=== PATIENT | male | born 2000 | race Caucasian/White ===

== ENCOUNTER 2021-05-17 16:00 | Inpatient (IN) | payer MEDICAID ==
[~2021-05-17] VITALS: Ht 167.6 cm; Wt 69.2 kg
[~2021-05-17 16:00] MED LIST: OLAN2.5T3 PO
[2021-05-17] MEDS ORDERED: magnesium 4gm in 100ml NS 100 ML IV PRN (16:45)
[2021-05-17] MEDS ORDERED: ondansetron/PF 4mg/2ml inj IV PRN (16:45)
[2021-05-17] MEDS ORDERED: potassium CL 10mEq/100ml bag 100 ML IV PRN (16:45)
[2021-05-17] MEDS ORDERED: mag hydrox/Alum hydrox/simeth 30ml oral suspension PO PRN (16:45)
[2021-05-17] MEDS ORDERED: potassium Cl 20 mEq SR tablet PO PRN ×2 (16:45)
[2021-05-17] MEDS ORDERED: acetaminophen 325mg tablet PO PRN (16:45)
[2021-05-17] MEDS ORDERED: magnesium 2GM in 50ml NS 50 ML IV PRN (16:45)
[2021-05-17] MEDS ORDERED: magnesium hydroxide 30ml (MOM) UD suspension PO PRN (16:45)
[2021-05-17] MEDS ORDERED: OLAN2.5T28 PO (16:57)
[2021-05-17] MEDS ORDERED: ARIP5TAB60 PO (16:57)
[2021-05-17 17:20] VITALS: BP 110/57
--- NOTE | 2021-05-17 17:20 | NUR ---
Pt transferred from [facility] to [facility] via w/c to bed. Pt reported BARBOSA. Tylenol to be given for BARBOSA. T 99.6. Pt denied any other discomfort. O2 sats 98% on RA. Sitter at bedside for pt safety.
[2021-05-17] MEDS: acetaminophen 325mg tablet PO PRN (17:41)
--- NOTE | 2021-05-17 18:00 | NUR ---
Patient in room ORTHO 4022. I have received report from TAMI Yu and had the opportunity to ask questions and assume patient care.
[2021-05-17] MEDS: K and/or MAG REPLACEMENT MC SCH (19:39)
[2021-05-17] MEDS: docusate sod 100mg capsule PO SCH (20:00)
[2021-05-17] MEDS ORDERED: enoxaparin 40mg/0.4ml syringe SQ SCH (20:00)
[2021-05-17] MEDS: clonazePAM 1mg tablet PO SCH (20:45)
[2021-05-17] MEDS: olanzapine 10mg tablet PO SCH (20:48)
[2021-05-17 22:00] VITALS: BP 115/65
[2021-05-18] MEDS: acetaminophen 325mg tablet PO PRN (05:39)
[2021-05-18 06:00] VITALS: BP 126/71
--- NOTE | 2021-05-18 06:20 | NUR ---
RECEIVED REPORT FROM TAMI RUELAS
--- NOTE | 2021-05-18 06:29 | NUR ---
Problems reprioritized. Patient report given, questions answered & plan of care reviewed with TAMI Kan.
[2021-05-18 07:37] LABS: BASOPHILS % (AUTO) 0.4 % (0-1); EOSINOPHILS % (AUTO) 0.3 % (0-6); HEMATOCRIT 41.5 % (42.0-52.0); HEMOGLOBIN 14.8 g/dl (14.0-17.9); LYMPHOCYTES % (AUTO) 18.3 % (21-51); MEAN CORPUSCULAR HEMOGLOBIN 34.1 PG (27.0-31.0); MEAN CORPUSCULAR HGB CONC 35.7 g/dL (33.0-36.5); MEAN CORPUSCULAR VOLUME 95.6 FL (78-98); MEAN PLATELET VOLUME 8.4 FL (7.4-10.4); MONOCYTES # (AUTO) 1.1 X10'3 (0-0.9); MONOCYTES % (AUTO) 20.5 % (2-12); NEUTROPHILS # (AUTO) 3.3 X10'3 (1.8-7.7); NEUTROPHILS % (AUTO) 60.5 % (42-75); PLATELET COUNT 173 X10'3 (140-440); RED BLOOD COUNT 4.34 X10'6 (4.70-6.10); RED CELL DISTRIBUTION WIDTH 12.3 % (11.5-14.5); WHITE BLOOD COUNT 5.4 X10'3 (4.5-11.0)
[2021-05-18 07:40] LABS: D-DIMER 1.68 MG/L FEU (0-0.50)
[2021-05-18] MEDS: K and/or MAG REPLACEMENT MC SCH ×2 (08:00→20:00)
[2021-05-18] MEDS: docusate sod 100mg capsule PO SCH ×2 (08:00→20:00)
[2021-05-18 08:01] LABS: ALANINE AMINOTRANSFERASE 23 U/L (12-78); ALBUMIN 3.5 G/DL (3.4-5.0); ALBUMIN/GLOBULIN RATIO 1.3 (1.1-1.5); ALKALINE PHOSPHATASE 58 IU/L (20-180); ANION GAP 10 (8-16); ASPARTATE AMINO TRANSFERASE 15 U/L (10-37); BILIRUBIN,TOTAL 0.3 MG/DL (0.1-1.0); BLOOD UREA NITROGEN 11 MG/DL (7-18); BUN/CREATININE RATIO 11.2 (5.4-32.0); C-REACTIVE PROTEIN 1.83 MG/DL (0.0-0.5); CALCIUM 8.6 MG/DL (8.5-10.1); CHLORIDE 108 MMOL/L (99-107); CREATININE 0.98 MG/DL (0.60-1.10); GLUCOSE 111 MG/DL (70-104); SODIUM 144 MMOL/L (135-145); TOTAL CARBON DIOXIDE 25.7 MMOL/L (24-32); TOTAL PROTEIN 6.2 G/DL (6.4-8.2); eGFR > 90 ML/MIN
[2021-05-18] MEDS: olanzapine 10mg tablet PO SCH ×2 (08:20→19:48)
[2021-05-18] MEDS: clonazePAM 1mg tablet PO SCH ×2 (08:20→19:46)
[2021-05-18] MEDS: enoxaparin 40mg/0.4ml syringe SQ SCH ×2 (09:44→19:45)
[2021-05-18 10:00] VITALS: BP 102/52
[2021-05-18 14:00] VITALS: BP 124/67
[2021-05-18] MEDS: clonazePAM 1mg tablet PO PRN (15:02)
[2021-05-18] MEDS: NICOTINE POLACRILEX 2 MG LOZENGE BC PRN (16:55)
--- NOTE | 2021-05-18 18:14 | NUR ---
GAVE REPORT TO August,
[2021-05-18 18:30] VITALS: BP 127/73
[2021-05-18 22:00] VITALS: BP 119/62
[2021-05-19 02:00] VITALS: BP 115/68
[2021-05-19 06:00] VITALS: BP 112/78
--- NOTE | 2021-05-19 06:25 | NUR ---
Patient in room ORTHO 4022B. I have received report from TAMI BANKS and had the opportunity to ask questions and assume patient care.
[2021-05-19] MEDS: enoxaparin 40mg/0.4ml syringe SQ SCH ×2 (08:00→20:00)
[2021-05-19] MEDS: K and/or MAG REPLACEMENT MC SCH ×2 (08:00→19:29)
[2021-05-19] MEDS: clonazePAM 1mg tablet PO SCH ×2 (08:08→20:25)
[2021-05-19] MEDS: olanzapine 10mg tablet PO SCH ×2 (08:08→20:25)
[2021-05-19] MEDS: docusate sod 100mg capsule PO SCH ×2 (08:08→20:00)
[2021-05-19] MEDS: clonazePAM 1mg tablet PO PRN ×2 (09:58→15:33)
[2021-05-19 10:00] VITALS: BP 112/60
[2021-05-19 10:38] LABS: BASOPHILS % (AUTO) 0.3 % (0-1); EOSINOPHILS % (AUTO) 0.5 % (0-6); HEMATOCRIT 46.5 % (42.0-52.0); HEMOGLOBIN 16.2 g/dl (14.0-17.9); LYMPHOCYTES # (AUTO) 1.6 X10'3 (1.1-4.8); LYMPHOCYTES % (AUTO) 39.8 % (21-51); MEAN CORPUSCULAR HEMOGLOBIN 33.7 PG (27.0-31.0); MEAN CORPUSCULAR HGB CONC 34.7 g/dL (33.0-36.5); MEAN CORPUSCULAR VOLUME 97.1 FL (78-98); MEAN PLATELET VOLUME 8.7 FL (7.4-10.4); MONOCYTES # (AUTO) 0.6 X10'3 (0-0.9); MONOCYTES % (AUTO) 15.4 % (2-12); NEUTROPHILS # (AUTO) 1.8 X10'3 (1.8-7.7); PLATELET COUNT 191 X10'3 (140-440); RED CELL DISTRIBUTION WIDTH 12.6 % (11.5-14.5); WHITE BLOOD COUNT 4.1 X10'3 (4.5-11.0)
--- NOTE | 2021-05-19 10:40 | NUR ---
pt was agitated, wanting to leave. said he stole drug money and people wanted to kill him over it so he just wanted to get it over. he was encouraged to stay, as this is the safest place for him. distracted by music, a phone call with his mom, and coloring pages.
[2021-05-19 10:52] LABS: ALANINE AMINOTRANSFERASE 31 U/L (12-78); ALBUMIN 3.8 G/DL (3.4-5.0); ALBUMIN/GLOBULIN RATIO 1.3 (1.1-1.5); ALKALINE PHOSPHATASE 64 IU/L (20-180); ANION GAP 9 (8-16); ASPARTATE AMINO TRANSFERASE 16 U/L (10-37); BILIRUBIN,TOTAL 0.4 MG/DL (0.1-1.0); BLOOD UREA NITROGEN 14 MG/DL (7-18); BUN/CREATININE RATIO 17.7 (5.4-32.0); C-REACTIVE PROTEIN 2.06 MG/DL (0.0-0.5); CALCIUM 8.9 MG/DL (8.5-10.1); CHLORIDE 105 MMOL/L (99-107); CREATININE 0.79 MG/DL (0.60-1.10); GLUCOSE 98 MG/DL (70-104); MAGNESIUM 1.9 MG/DL (1.5-2.4); POTASSIUM 3.8 MMOL/L (3.5-5.1); SODIUM 141 MMOL/L (135-145); TOTAL CARBON DIOXIDE 27.2 MMOL/L (24-32); TOTAL PROTEIN 6.7 G/DL (6.4-8.2); eGFR > 90 ML/MIN
[2021-05-19 11:12] LABS: D-DIMER 0.83 MG/L FEU (0-0.50)
[2021-05-19 14:00] VITALS: BP 132/73
--- NOTE | 2021-05-19 15:13 | NUR ---
Page Sent PAGER ID: [phone] MESSAGE: Yesenia [phone] Re:TavoAshleya [id number] pt woke up demanding Klonipin. I cannot give again until 1999. He is threatening to leave again. Is there something else I can give him? He is just saying he wants drugs. Thank you
--- NOTE | 2021-05-19 17:38 | NUR ---
Per Kecia in [facility] -- pt extended foster care participant; [facility], [employer] is Josette Fernández [phone], pt can call her/she call him to calm him down if needed - may need a form signed by him to release information to her?; D/C plan has been sent to director of social work
[2021-05-19 18:00] VITALS: BP 105/60
--- NOTE | 2021-05-19 18:17 | NUR ---
Problems reprioritized. Patient report given, questions answered & plan of care reviewed with TAMI Chambers.
--- NOTE | 2021-05-19 20:30 | NUR ---
Patient agreeable to take Clonazepam and Zyprexa as ordered but no other medications at this time. Patient is alert and orientated but declined to share what brought him to the hospital. He was able to verbalize understanding of precautions r/t a positive covid test. Patient able to reposition self independently. Denies any further questions, concerns or needs at this time. Will continue to monitor.
[2021-05-19 22:00] VITALS: BP 125/86
[2021-05-20 02:00] VITALS: BP 103/51
[2021-05-20 06:10] VITALS: BP 119/70
--- NOTE | 2021-05-20 06:30 | NUR ---
Patient in room ORTHO 4022. I have received report from Trish GARRETT and had the opportunity to ask questions and assume patient care.
[2021-05-20] MEDS: clonazePAM 1mg tablet PO SCH ×2 (07:10→19:10)
[2021-05-20] MEDS: olanzapine 10mg tablet PO SCH ×2 (07:10→19:10)
[2021-05-20] MEDS: K and/or MAG REPLACEMENT MC SCH ×2 (08:00→19:05)
[2021-05-20] MEDS: docusate sod 100mg capsule PO SCH ×2 (08:00→19:05)
[2021-05-20] MEDS: enoxaparin 40mg/0.4ml syringe SQ SCH ×2 (08:00→19:05)
[2021-05-20] MEDS: clonazePAM 1mg tablet PO PRN ×2 (08:59→15:26)
[2021-05-20 09:03] LABS: ALANINE AMINOTRANSFERASE 30 U/L (12-78); ALBUMIN 3.7 G/DL (3.4-5.0); ALBUMIN/GLOBULIN RATIO 1.3 (1.1-1.5); ALKALINE PHOSPHATASE 61 IU/L (20-180); ANION GAP 8 (8-16); ASPARTATE AMINO TRANSFERASE 18 U/L (10-37); BILIRUBIN,TOTAL 0.3 MG/DL (0.1-1.0); BLOOD UREA NITROGEN 22 MG/DL (7-18); BUN/CREATININE RATIO 24.4 (5.4-32.0); C-REACTIVE PROTEIN 1.27 MG/DL (0.0-0.5); CALCIUM 8.6 MG/DL (8.5-10.1); CHLORIDE 106 MMOL/L (99-107); GLUCOSE 90 MG/DL (70-104); MAGNESIUM 1.8 MG/DL (1.5-2.4); POTASSIUM 3.9 MMOL/L (3.5-5.1); SODIUM 141 MMOL/L (135-145); TOTAL CARBON DIOXIDE 26.7 MMOL/L (24-32); TOTAL PROTEIN 6.6 G/DL (6.4-8.2); eGFR > 90 ML/MIN
[2021-05-20 09:08] LABS: D-DIMER 0.89 MG/L FEU (0-0.50)
[2021-05-20 09:31] LABS: BASOPHILS % (AUTO) 0.5 % (0-1); EOSINOPHILS # (AUTO) 0.1 X10'3 (0-0.9); EOSINOPHILS % (AUTO) 1.3 % (0-6); HEMATOCRIT 44.2 % (42.0-52.0); HEMOGLOBIN 15.4 g/dl (14.0-17.9); LYMPHOCYTES # (AUTO) 1.8 X10'3 (1.1-4.8); LYMPHOCYTES % (AUTO) 36.6 % (21-51); MEAN CORPUSCULAR HEMOGLOBIN 33.7 PG (27.0-31.0); MEAN CORPUSCULAR HGB CONC 34.9 g/dL (33.0-36.5); MEAN CORPUSCULAR VOLUME 96.4 FL (78-98); MEAN PLATELET VOLUME 9.2 FL (7.4-10.4); MONOCYTES # (AUTO) 0.4 X10'3 (0-0.9); MONOCYTES % (AUTO) 8.1 % (2-12); NEUTROPHILS # (AUTO) 2.6 X10'3 (1.8-7.7); NEUTROPHILS % (AUTO) 53.5 % (42-75); PLATELET COUNT 169 X10'3 (140-440); RED BLOOD COUNT 4.58 X10'6 (4.70-6.10); RED CELL DISTRIBUTION WIDTH 12.5 % (11.5-14.5); WHITE BLOOD COUNT 4.9 X10'3 (4.5-11.0)
[2021-05-20 10:00] VITALS: BP 140/82
--- NOTE | 2021-05-20 14:42 | NUR ---
Initial: Pt transferred from behavioral health unit d/t nicky MADDIE. Currently on a regular diet and eating well throughout LOS with 75-100% PO intake meeting estimated nutrient needs. LBM 05/19, with routine bowel care available though pt documented to be refusing at times. No documented edema or wounds. No nutrition intervention implemented at this time. Will continue to follow. Recommendations: 1) Continue regular diet 2) Monitor need for additional protein 3) Routine bowel care 4) Weekly scaled weights Addendum: 05/20/21 at [address] Amended: Links added.
[2021-05-20] MEDS: NICOTINE POLACRILEX 2 MG LOZENGE BC PRN (16:13)
--- NOTE | 2021-05-20 18:39 | NUR ---
Problems reprioritized. Patient report given, questions answered & plan of care reviewed with Trish Pozo
[2021-05-20 19:00] VITALS: BP 141/89
--- NOTE | 2021-05-20 19:17 | NUR ---
During assessment of patient he was able to verbalize feel scared r/t my poor decisions and people wanting to kill me. He stated to this nurse that "I made poor decisions trying to impress a girl." He was able to verbalize that he is safe here and would like when he is able to go back to behavioral health. Pt took klonopin and zyprexa as ordered and refused colace and lovenox at this time. Pt cell phone was returned to him from the charging at the nursing station per his request. Denies having any other needs. Will continue to monitor. Addendum: 05/20/21 at 4 by Trish Larios RN Amended: Links added.
[2021-05-20 22:00] VITALS: BP 116/66
--- NOTE | 2021-05-21 06:29 | NUR ---
Report given to Nikia GARRETT.
--- NOTE | 2021-05-21 06:38 | NUR ---
Patient in room ORTHO 4022. I have received report from Trish GARRETT and had the opportunity to ask questions and assume patient care.
[2021-05-21 06:43] VITALS: BP 103/57
[2021-05-21] MEDS: clonazePAM 1mg tablet PO SCH ×2 (06:58→20:37)
[2021-05-21] MEDS: olanzapine 10mg tablet PO SCH ×2 (06:59→20:37)
[2021-05-21] MEDS: docusate sod 100mg capsule PO SCH ×2 (06:59→20:37)
[2021-05-21] MEDS: enoxaparin 40mg/0.4ml syringe SQ SCH ×2 (06:59→20:38)
[2021-05-21] MEDS: NICOTINE POLACRILEX 2 MG LOZENGE BC PRN ×3 (07:04→16:36)
[2021-05-21] MEDS: K and/or MAG REPLACEMENT MC SCH ×2 (08:00→19:50)
[2021-05-21 09:00] LABS: BASOPHILS % (AUTO) 0.3 % (0-1); EOSINOPHILS # (AUTO) 0.1 X10'3 (0-0.9); EOSINOPHILS % (AUTO) 1.6 % (0-6); HEMATOCRIT 41.8 % (42.0-52.0); HEMOGLOBIN 14.3 g/dl (14.0-17.9); LYMPHOCYTES # (AUTO) 1.3 X10'3 (1.1-4.8); LYMPHOCYTES % (AUTO) 28.3 % (21-51); MEAN CORPUSCULAR HEMOGLOBIN 33.6 PG (27.0-31.0); MEAN CORPUSCULAR HGB CONC 34.3 g/dL (33.0-36.5); MEAN CORPUSCULAR VOLUME 97.8 FL (78-98); MONOCYTES # (AUTO) 0.4 X10'3 (0-0.9); MONOCYTES % (AUTO) 8.8 % (2-12); NEUTROPHILS # (AUTO) 2.8 X10'3 (1.8-7.7); PLATELET COUNT 183 X10'3 (140-440); RED BLOOD COUNT 4.27 X10'6 (4.70-6.10); RED CELL DISTRIBUTION WIDTH 12.3 % (11.5-14.5); WHITE BLOOD COUNT 4.6 X10'3 (4.5-11.0)
[2021-05-21 09:09] LABS: D-DIMER 1.27 MG/L FEU (0-0.50)
--- NOTE | 2021-05-21 09:10 | NUR ---
Patient requesting kolonopin, PRN given. Provided patient with towels and shampoo and body wash to take a shower and linens changed. Lunch ordered for patient, resting comfortably after shower watching tv.
[2021-05-21] MEDS: clonazePAM 1mg tablet PO PRN (09:16)
[2021-05-21 09:24] LABS: ALANINE AMINOTRANSFERASE 27 U/L (12-78); ALBUMIN 3.3 G/DL (3.4-5.0); ALBUMIN/GLOBULIN RATIO 1.2 (1.1-1.5); ALKALINE PHOSPHATASE 57 IU/L (20-180); ANION GAP 7 (8-16); ASPARTATE AMINO TRANSFERASE 16 U/L (10-37); BILIRUBIN,TOTAL 0.2 MG/DL (0.1-1.0); BLOOD UREA NITROGEN 22 MG/DL (7-18); BUN/CREATININE RATIO 25.9 (5.4-32.0); C-REACTIVE PROTEIN 0.67 MG/DL (0.0-0.5); CALCIUM 8.5 MG/DL (8.5-10.1); CHLORIDE 108 MMOL/L (99-107); CREATININE 0.85 MG/DL (0.60-1.10); GLUCOSE 93 MG/DL (70-104); POTASSIUM 4.1 MMOL/L (3.5-5.1); SODIUM 144 MMOL/L (135-145); TOTAL CARBON DIOXIDE 29.3 MMOL/L (24-32); TOTAL PROTEIN 6.1 G/DL (6.4-8.2); eGFR > 90 ML/MIN
--- NOTE | 2021-05-21 09:39 | NUR ---
Spoke with patient at length this morning. He is continually saying he thinks someone is going to kill him, discussed with him that he is in a safe place and no one will be able to get to him here. Also asked him to please let me know if he is feeling anxious as there are things we can do to help. Patient is calm, not violent and is cooperative with care.
[2021-05-21 11:44] VITALS: BP 119/80
--- NOTE | 2021-05-21 11:49 | NUR ---
PAGER ID: [phone] MESSAGE: [phone], Tavo only has PRN kolonopin TID, so i can not give him anything for another 6 hours. He is highly anxious... [facility] patient, can i get prn ativan? jeremiah [phone]
--- NOTE | 2021-05-21 11:52 | NUR ---
Spoke with [facility], extension service specialist in charge to talk to provider about ordering a prn for anxiety.
--- NOTE | 2021-05-21 12:03 | NUR ---
Patients cell phone is missing, bed linens were changed while this RN was on break, looked all throughout room for phone and did not find it. Called [facility] to ask if they can look through the linen downstairs.
[2021-05-21] MEDS: QUEtiapine 25mg tablet PO SCH ×3 (12:59→20:38)
[2021-05-21 14:47] VITALS: BP 132/84
--- NOTE | 2021-05-21 15:50 | NUR ---
material assembler Jason came to floor to try to calm patient down.
--- NOTE | 2021-05-21 16:33 | NUR ---
Patient eloped off of the unit while this RN was moving another one of her patients. Security was called and the found patient outside and brought him back to the floor. Patient was placed in green scrubs and a sitter is outside of his room. Educated patient multiple times today on the importance of being patient while i am caring for sick people as he is not my only patient. Also educated on the fact that he is legally on a hold and can not leave the hospital at this time. I expressed my frustrations in the fact that I have tried to keep him comfortable and attend to his needs and he is disrespecting me and my authority.
--- NOTE | 2021-05-21 19:15 | NUR ---
Problems reprioritized. Patient report given, questions answered & plan of care reviewed with Dennys GARRETT.
[2021-05-21 22:00] VITALS: BP 139/74
[2021-05-22 02:00] VITALS: BP 110/56
[2021-05-22] MEDS: clonazePAM 1mg tablet PO SCH (05:51)
--- NOTE | 2021-05-22 06:19 | NUR ---
Patient in room ORTHO 4022. I have received report from Dennys GARRETT and had the opportunity to ask questions and assume patient care.
[2021-05-22 06:35] VITALS: BP 118/67
[2021-05-22] MEDS: docusate sod 100mg capsule PO SCH (06:50)
[2021-05-22] MEDS: enoxaparin 40mg/0.4ml syringe SQ SCH (06:50)
[2021-05-22] MEDS: QUEtiapine 25mg tablet PO SCH ×2 (06:52→12:01)
[2021-05-22] MEDS: olanzapine 10mg tablet PO SCH (06:52)
[2021-05-22 07:24] LABS: D-DIMER 0.76 MG/L FEU (0-0.50)
[2021-05-22 07:25] LABS: BASOPHILS % (AUTO) 0.2 % (0-1); EOSINOPHILS # (AUTO) 0.1 X10'3 (0-0.9); EOSINOPHILS % (AUTO) 1.7 % (0-6); HEMATOCRIT 39.7 % (42.0-52.0); HEMOGLOBIN 14.1 g/dl (14.0-17.9); LYMPHOCYTES # (AUTO) 1.4 X10'3 (1.1-4.8); LYMPHOCYTES % (AUTO) 28.3 % (21-51); MEAN CORPUSCULAR HEMOGLOBIN 34.3 PG (27.0-31.0); MEAN CORPUSCULAR HGB CONC 35.5 g/dL (33.0-36.5); MEAN CORPUSCULAR VOLUME 96.6 FL (78-98); MEAN PLATELET VOLUME 8.8 FL (7.4-10.4); MONOCYTES # (AUTO) 0.4 X10'3 (0-0.9); MONOCYTES % (AUTO) 9.2 % (2-12); NEUTROPHILS # (AUTO) 2.9 X10'3 (1.8-7.7); NEUTROPHILS % (AUTO) 60.6 % (42-75); PLATELET COUNT 168 X10'3 (140-440); RED BLOOD COUNT 4.12 X10'6 (4.70-6.10); RED CELL DISTRIBUTION WIDTH 12.2 % (11.5-14.5); WHITE BLOOD COUNT 4.9 X10'3 (4.5-11.0)
[2021-05-22 07:42] LABS: ALANINE AMINOTRANSFERASE 54 U/L (12-78); ALBUMIN 3.4 G/DL (3.4-5.0); ALBUMIN/GLOBULIN RATIO 1.3 (1.1-1.5); ALKALINE PHOSPHATASE 61 IU/L (20-180); ANION GAP 12 (8-16); ASPARTATE AMINO TRANSFERASE 28 U/L (10-37); BILIRUBIN,TOTAL 0.3 MG/DL (0.1-1.0); BLOOD UREA NITROGEN 19 MG/DL (7-18); BUN/CREATININE RATIO 20.7 (5.4-32.0); C-REACTIVE PROTEIN 0.62 MG/DL (0.0-0.5); CALCIUM 8.4 MG/DL (8.5-10.1); CHLORIDE 106 MMOL/L (99-107); CREATININE 0.92 MG/DL (0.60-1.10); GLUCOSE 113 MG/DL (70-104); MAGNESIUM 1.8 MG/DL (1.5-2.4); POTASSIUM 3.8 MMOL/L (3.5-5.1); SODIUM 142 MMOL/L (135-145); TOTAL CARBON DIOXIDE 23.9 MMOL/L (24-32); eGFR > 90 ML/MIN
[2021-05-22] MEDS: K and/or MAG REPLACEMENT MC SCH (08:00)
[2021-05-22] MEDS: NICOTINE POLACRILEX 2 MG LOZENGE BC PRN (08:56)
[2021-05-22 10:55] VITALS: BP 129/73
[2021-05-22] MEDS: clonazePAM 1mg tablet PO PRN (12:03)
[2021-05-22] MEDS ORDERED: haloperidol 5mg tablet PO ONE (14:05)
[2021-05-22] MEDS ORDERED: diphenhydrAMINE 25mg capsule PO ONE (14:05)
[2021-05-22] MEDS ORDERED: LORazepam 1 MG tablet PO ONE (14:05)
--- NOTE | 2021-05-22 14:07 | NUR ---
PAGER ID: [phone] MESSAGE: [id number], Tavo wants to go AMA per security his 5250 does not hold on a medical floor. Do i let him leave? please call me corinne daniels [phone]
--- NOTE | 2021-05-22 14:15 | NUR ---
PAGER ID: [phone] MESSAGE: [email or web address] can I please get an order for a [id number] thank you. jeremiah [phone]
--- NOTE | 2021-05-22 14:31 | NUR ---
PAGER ID: [phone] MESSAGE: [phone] Tavo, patient went AMA per security and nursing sup not legal to hold patient even on a 179. IVORY called thank you. jeremiah [phone]
--- NOTE | 2021-05-22 14:31 | NUR ---
Patient increasingly more anxious and noncooperative, throwing things. Called security to help with patient and called adult mental health physical family assistant murray hickman, receieved orders for haldol, ativan and benadryl all of which patient was willing to take orally. Per security we can not hold patient on floor even with [id number] as it is invalid on medical floor, confirmed by nursing hog room supervisor. Placed page to dr. morris for 1798 but even with that per security unless conserved on a medical floor we CAN NOT hold him. Patient signed AMA paperwork, hospitalist notified and [employer] called.
[2021-05-23] MEDS ORDERED: OLAN15TA3 PO (14:02)
[2021-05-23] MEDS ORDERED: OLAN10TA3 PO (14:02)
[2021-05-23] MEDS ORDERED: CLON1TAB96 PO (14:02)
[2021-05-23] MEDS ORDERED: QUET25TA PO (14:07)
== END 2021-05-22 14:25 | disposition left against medical advice (07) | DRG 137 ==
LOC: ORTHO 4S 16:00
PROVIDERS: ADMIT Family Medicine; ATTEND Family Medicine
DX: U07.1 COVID-19 (principal); F25.9 Schizoaffective disorder, unspecified; R65.10 Systemic inflammatory response syndrome (SIRS) of non-infectious origin without acute organ dysfunction; Z53.29 Procedure and treatment not carried out because of patient's decision for other reasons; F17.210 Nicotine dependence, cigarettes, uncomplicated; Z71.6 Tobacco abuse counseling
CPT/HCPCS: 36415; 80053; 83735; 85025; 85379; 86140; 87081; G0378; J1650

== ENCOUNTER 2021-05-23 10:17 | Emergency (ER) | payer MEDICAID ==
[~2021-05-23] VITALS: Ht 167.6 cm; Wt 68.2 kg
[~2021-05-23 10:17] MED LIST changes: +ARIP5TAB60 PO; +OLAN2.5T28 PO; -OLAN2.5T3 PO
[2021-05-23 12:56] VITALS: BP 123/76
[2021-05-23] MEDS ORDERED: OLAN15TA3 PO (14:02)
[2021-05-23] MEDS ORDERED: CLON1TAB96 PO (14:02)
[2021-05-23] MEDS ORDERED: OLAN10TA3 PO (14:02)
[2021-05-23] MEDS ORDERED: QUET25TA PO (14:07)
[2021-05-24] MEDS ORDERED: CLON-527 PO ×2 (03:02→03:35)
[2021-05-24] MEDS ORDERED: QUET25TA PO (03:02)
== END 2021-05-23 15:47 | disposition home or self-care (01) ==
LOC: ER 10:18
DX: Z02.89 Encounter for other administrative examinations (principal); F32.9 Major depressive disorder, single episode, unspecified; F41.9 Anxiety disorder, unspecified; F17.200 Nicotine dependence, unspecified, uncomplicated; F12.90 Cannabis use, unspecified, uncomplicated; Z72.89 Other problems related to lifestyle; Z60.2 Problems related to living alone; Z59.00 Homelessness unspecified; Z79.899 Other long term (current) drug therapy
CPT/HCPCS: 71045; 99283

== ENCOUNTER 2021-05-23 19:02 | Emergency (ER) | payer MEDICAID ==
[~2021-05-23] VITALS: Ht 167.6 cm; Wt 68.0 kg
[~2021-05-23 19:02] MED LIST changes: +CLON1TAB96 PO; +OLAN10TA3 PO; +OLAN15TA3 PO; +QUET25TA PO
[2021-05-23 19:47] LABS: BASOPHILS # (AUTO) 0.1 X10'3 (0-0.2); BASOPHILS % (AUTO) 0.8 % (0-1); EOSINOPHILS % (AUTO) 0.2 % (0-6); HEMATOCRIT 37.6 % (42.0-52.0); HEMOGLOBIN 13.3 g/dl (14.0-17.9); LYMPHOCYTES # (AUTO) 1.1 X10'3 (1.1-4.8); LYMPHOCYTES % (AUTO) 12.8 % (21-51); MEAN CORPUSCULAR HEMOGLOBIN 34.1 PG (27.0-31.0); MEAN CORPUSCULAR HGB CONC 35.4 g/dL (33.0-36.5); MEAN CORPUSCULAR VOLUME 96.3 FL (78-98); MEAN PLATELET VOLUME 8.4 FL (7.4-10.4); MONOCYTES # (AUTO) 0.5 X10'3 (0-0.9); NEUTROPHILS # (AUTO) 6.8 X10'3 (1.8-7.7); NEUTROPHILS % (AUTO) 80.2 % (42-75); PLATELET COUNT 195 X10'3 (140-440); RED BLOOD COUNT 3.91 X10'6 (4.70-6.10); RED CELL DISTRIBUTION WIDTH 12.5 % (11.5-14.5); WHITE BLOOD COUNT 8.5 X10'3 (4.5-11.0)
[2021-05-23 19:48] LABS: ALANINE AMINOTRANSFERASE 85 U/L (12-78); ALBUMIN 3.5 G/DL (3.4-5.0); ALBUMIN/GLOBULIN RATIO 1.3 (1.1-1.5); ALKALINE PHOSPHATASE 60 IU/L (20-180); ANION GAP 8 (8-16); ASPARTATE AMINO TRANSFERASE 38 U/L (10-37); BILIRUBIN,TOTAL 0.3 MG/DL (0.1-1.0); BLOOD UREA NITROGEN 16 MG/DL (7-18); BUN/CREATININE RATIO 20.8 (5.4-32.0); CALCIUM 8.4 MG/DL (8.5-10.1); CHLORIDE 105 MMOL/L (99-107); CREATININE 0.77 MG/DL (0.60-1.10); ETHANOL < 0.010 GM/DL (0.0-0.010); GLUCOSE 145 MG/DL (70-104); POTASSIUM 3.4 MMOL/L (3.5-5.1); SODIUM 140 MMOL/L (135-145); TOTAL CARBON DIOXIDE 27.1 MMOL/L (24-32); TOTAL PROTEIN 6.3 G/DL (6.4-8.2); eGFR > 90 ML/MIN
--- NOTE | 2021-05-23 20:13 | NUR ---
Counted medications: 4 bottles, all dispenced 05/23/21 Klonopin 1mg 60 tablets: Missing 15 tablets Seroquel 25mg 120mg tablets: Missing 2 tablets Zyprexa 10mg 30 tablets: Missing 1 tablet Zyprexa 15mg 30 tablets: Missing 0 tablets.
--- NOTE | 2021-05-23 20:20 | NUR ---
Poison control does NOT recomend giving flumazinel.
--- NOTE | 2021-05-23 20:20 | NUR ---
Spoke with Amarjit at [employer]. Informed him that the pt took an overdose of Klonopin 1mg x 15 tablets. Amarjit advised to watch for CLAIM TAKER depression and to provide supportive care.
[2021-05-23 21:10] LABS: URINE AMPHETAMINE SCREEN NEGATIVE (Neg); URINE BARBITUATE SCREEN NEGATIVE (Neg); URINE BENZODIAZEPINES SCREEN NEGATIVE (Neg); URINE CANNABINOID SCREEN POSITIVE (Neg); URINE COCAINE SCREEN NEGATIVE (Neg); URINE METHADONE SCREEN NEGATIVE (Neg); URINE OPIATE SCREEN NEGATIVE (Neg); URINE PHENCYCLIDINE SCREEN NEGATIVE (Neg)
--- NOTE | 2021-05-23 23:00 | NUR ---
PT LAYING ON LEFT SIDE RESTING QUIETLY, NO S/S OF DISTRESS
[2021-05-24] MEDS ORDERED: diphenhydrAMINE 25mg capsule PO ONE (01:25)
--- NOTE | 2021-05-24 02:24 | NUR ---
pt resting on left side with eyes closed. no s/s of distress
[2021-05-24] MEDS ORDERED: QUET25TA PO (03:02)
[2021-05-24] MEDS ORDERED: CLON-527 PO ×2 (03:02→03:35)
[2021-05-24] MEDS ORDERED: clonazePAM 1mg tablet PO PRN (03:35)
--- NOTE | 2021-05-24 04:10 | NUR ---
PT AT DOOR OF ROOM REQUESTING ANXIETY MEDICATION. EXPLAINED TO PT THAT NOTHIGN IS ORDERED DUE TO OVERDOSE. PT LAYED BACK ON BED, NO S/S OF DISTRESS
--- NOTE | 2021-05-24 05:30 | NUR ---
PT AT DOOR ASKING ABOUT BREAKFAST TIME, TOLD PT TIMEFRAME, PT LAYED BACK ON BED ON RIGHT SIDE AND WENT TO SLEEP.
[2021-05-24] MEDS ORDERED: QUEtiapine 25mg tablet PO SCH (08:00)
[2021-05-24] MEDS ORDERED: OLANZapine 2.5MG tablet PO SCH (08:00)
[2021-05-24] MEDS ORDERED: aripiprazole 5mg tablet PO SCH (08:00)
[2021-05-24 10:35] VITALS: BP 131/73
--- NOTE | 2021-05-24 12:09 | NUR ---
Patient up for discharge per [facility].
== END 2021-05-24 12:22 | disposition home or self-care (01) ==
LOC: ER 19:03
DX: T42.4X2A Poisoning by benzodiazepines, intentional self-harm, initial encounter (principal); U07.1 COVID-19; R45.851 Suicidal ideations; R00.0 Tachycardia, unspecified; F12.90 Cannabis use, unspecified, uncomplicated; Z72.89 Other problems related to lifestyle; Z60.2 Problems related to living alone; Z59.00 Homelessness unspecified; Z79.899 Other long term (current) drug therapy; Y92.89 Other specified places as the place of occurrence of the external cause
CPT/HCPCS: 36415; 71045; 80053; 80305; 80320; 80329; 82009; 85025; 87635; 93005; 99285; C9803